=== PATIENT | female | born 1945 | race Caucasian/White ===

== ENCOUNTER 2017-07-06 21:11 | Observation (INO) | payer OTHER ==
[2017-07-06 21:40] LABS: Absolute Lymphocytes (CBC) 1.2 K/uL (0.7-4.9); Absolute Monocytes 0.7 K/uL (0.1-1.3); Absolute Neutrophil 9.9 K/uL (1.8-8.0); Basophils % 0.2 % (0-1.3); Eosinophils % 0.8 % (0-4.4); Hematocrit 38.3 % (36.0-45.0); Lymphocytes % 10.4 % (15.3-44.8); MCH 29.1 pg (27.0-35.0); MCV 85.1 fL (80-100); MPV 7.6 fL (7.6-11.3); Monocytes % 6.1 % (3.3-12.3)
[2017-07-06 21:54] LABS: Potassium 3.3 mEq/L (3.6-5.0); Protime INR 1.03
[2017-07-06] MEDS ORDERED: PANTOPRAZOLE 40 MG INJ ONE (21:55)
[2017-07-06] MEDS ORDERED: MORPHINE 4 MG/ML SYR ONE (21:55)
[2017-07-06] MEDS ORDERED: ONDANSETRON 4 MG/2 ML VIAL ONE (21:55)
[2017-07-06 22:00] LABS: Bilirubin Direct 0.1 mg/dL (0-0.2); Magnesium 1.6 mg/dL (1.8-2.5); Protein, Total 7.7 g/dL (6.0-8.3)
[2017-07-06 22:03] LABS: Urine Blood 1+ (NEG); Urine Glucose NEGATIVE (NEG); Urine Protein NEGATIVE (NEG); Urine Specific Gravity 1.015 (1.005-1.030); Urine pH 8.5 (5.0-7.0)
[2017-07-06] MEDS ORDERED: DIPHENHYDRAMINE 50 MG/ML VIAL ONE (22:31)
[2017-07-06] MEDS ORDERED: MEPERIDINE HCL 25 MG/0.5 ML ONE (22:55)
[2017-07-06] MEDS ORDERED: ASPIRIN 81 MG CHEWABLE TABLET ONE (22:55)
[2017-07-07] MEDS ORDERED: ONDANSETRON 4 MG/2 ML VIAL ONE (01:34)
[2017-07-07] MEDS ORDERED: MAGNESIUM SULFATE 1 gm IVPB 1 GM/100 ML BAG IV ONE (01:59)
[2017-07-07] MEDS ORDERED: MAGNE/ALUM HYDROXD 30 ML UCUP ONE (02:12)
[2017-07-07] MEDS ORDERED: LIDOCAINE VISCOUS 2% SOLN 15 ML UDC ONE (02:12)
[2017-07-07] MEDS ORDERED: POTASSIUM 25 MEQ EFFERV TAB ONE (03:03)
[2017-07-07] MEDS ORDERED: FENTANYL CITR 100 MCG/2 ML ONE (03:28)
--- NOTE | 2017-07-07 03:44 | ER ---
Nurse's Notes [facility] Name: Yomaira East Age: 72 yrs Sex: Female : 1945 Arrival Date: 07/06/2017 Time: 21:20 Bed 16 Private MD: Diagnosis: Epigastric pain;Nausea and vomiting Presentation: 07/06 21:20 Presenting complaint: EMS states: "abdominal pain for about a week, with nausea and jd3 vomiting starting today along with epigastric pain. pt vomited times starting at 1930.". Transition of care: patient was not received from another setting of care. Onset of symptoms was June 30, 2017. Care prior to arrival: Medication(s) given: Normal saline infusion, 250ml zofran 4 mg, IV initiated. 20 GA, in the right antecubital area, Glucose check: 250. 21:20 Method Of Arrival: EMS: [facility] jd3 21:20 Acuity: ALEXANDRA 3 jd3 Historical: - Allergies: 21:28 PENICILLINS; jd3 21:28 Phenergan; jd3 - Home Meds: 21:28 carvedilol oral oral [Active]; Fentanyl Patch Topical [Active]; Lisinopril Oral jd3 [Active]; - PMHx: 21:28 brain tumer; jd3 - PSHx: 21:28 back surgery; Cholecystectomy; Stas foot surgery; Carpal Tunnel Repair; brain tumer jd3 removeal; Hysterectomy; neck surgery; - Immunization history:: Adult Immunizations unknown. - Social history:: Smoking status: unknown. Screenin:31 Abuse screen: Denies threats or abuse. Nutritional screening: No deficits noted. jd3 Tuberculosis screening: No symptoms or risk factors identified. Fall Risk IV access (20 points). Total Man Fall Scale indicates No Risk (0-24 pts). Assessment: 21:29 General: Appears uncomfortable, Behavior is cooperative, appropriate for age, anxious. jd3 Pain: Complains of pain in epigastric area Pain currently is 6 out of 10 on a pain scale. Quality of pain is described as burning. Neuro: Level of Consciousness is awake, alert, obeys commands, Oriented to person, place, time, situation. Cardiovascular: Heart tones S1 S2 present Capillary refill < 3 seconds Patient's skin is warm and dry. Respiratory: Airway is patent Respiratory effort is even, unlabored, Respiratory pattern is regular, symmetrical, Breath sounds are clear bilaterally. GI: Abdomen is round Bowel sounds present X 4 quads. Abd is soft X 4 quads Abdomen is tender to palpation in epigastric area and left lower quadrant Reports nausea, vomiting, Patient currently denies constipation, diarrhea. : No signs and/or symptoms were reported regarding the genitourinary system. EENT: No signs and/or symptoms were reported regarding the EENT system. Derm: Skin is intact, Skin is dry, Skin is normal, Skin temperature is warm. Musculoskeletal: Circulation, motion, and sensation intact. Range of motion: intact in all extremities. 22:30 Reassessment: Patient appears in no apparent distress at this time. Patient and/or jd3 family updated on plan of care and expected duration. Pain level reassessed. Patient is alert, oriented x 3, equal unlabored respirations, skin warm/dry/pink. 23:10 Reassessment: CT notified of patient completing oral contrast at this time. lp1 23:28 Reassessment: Patient appears in no apparent distress at this time. Patient and/or jd3 family updated on plan of care and expected duration. Pain level reassessed. Patient is alert, oriented x 3, equal unlabored respirations, skin warm/dry/pink. 07/07 00:19 Reassessment: Patient appears in no apparent distress at this time. Patient and/or jd3 family updated on plan of care and expected duration. Pain level reassessed. Patient is alert, oriented x 3, equal unlabored respirations, skin warm/dry/pink. Patient states feeling better. 01:31 Reassessment: Patient appears in no apparent distress at this time. Patient and/or jd3 family updated on plan of care and expected duration. Pain level reassessed. Patient is alert, oriented x 3, equal unlabored respirations, skin warm/dry/pink. 02:30 Reassessment: Patient appears in no apparent distress at this time. Patient and/or jd3 family updated on plan of care and expected duration. Pain level reassessed. Patient is alert, oriented x 3, equal unlabored respirations, skin warm/dry/pink. 03:19 Reassessment: Patient appears in no apparent distress at this time. Patient and/or jd3 family updated on plan of care and expected duration. Pain level reassessed. Patient is alert, oriented x 3, equal unlabored respirations, skin warm/dry/pink. 04:22 Reassessment: Patient appears in no apparent distress at this time. Patient and/or jd3 family updated on plan of care and expected duration. Pain level reassessed. Patient is alert, oriented x 3, equal unlabored respirations, skin warm/dry/pink. 05:28 Reassessment: Patient appears in no apparent distress at this time. Patient and/or jd3 family updated on plan of care and expected duration. Pain level reassessed. Patient is alert, oriented x 3, equal unlabored respirations, skin warm/dry/pink. pt reported understanding of need ot be admitted. Vital Signs: 07/06 21:28 BP 174 / 92; Pulse 86; Resp 20 S; Temp 99.0(O); Pulse Ox 100% on R/A; Weight 56.7 kg jd3 (R); Height 5 ft. 5 in. (165.10 cm) (R); Pain 6/10; 23:27 BP 182 / 98; Pulse 87; Resp 18 S; Pulse Ox 98% on R/A; jd3 04/01 00:18 BP 180 / 87; Pulse 86; Resp 17 S; Temp 99.4(O); Pulse Ox 99% on R/A; jd3 01:00 BP 180 / 95; Pulse 85; Resp 17 S; Pulse Ox 99% on R/A; jd3 03:17 BP 174 / 93; Pulse 85; Resp 18 S; Pulse Ox 97% on R/A; jd3 04:22 BP 149 / 90; Pulse 84; Resp 18 S; Pulse Ox 99% on R/A; jd3 05:29 BP 157 / 91; Pulse 81; Resp 17 S; Pulse Ox 97% on R/A; jd3 07/06 21:28 Body Mass Index 20.80 (56.70 kg, 165.10 cm) [facility] ED Course: 07/06 21:20 Patient arrived in ED. jd3 21:20 Parveen Miller PA is PHCP. cp 21:20 Ben Moise MD is Attending Physician. cp 21:24 Triage completed. jd3 21:29 Arm band placed on. jd3 21:31 Patient has correct armband on for positive identification. Bed in low position. Call [facility] light in reach. Side rails up X2. 21:33 Harjit Cortes, RN is Primary Nurse. jd3 21:51 X-ray completed. Portable x-ray completed in exam room. Patient tolerated procedure la2 well. 21:54 XRAY Chest (1 view) In Process Unspecified. EDMS 04 01:10 CT completed. Patient tolerated procedure well. Patient moved to CT via stretcher. bq Patient moved back from CT. 01:16 CT Abd/Pelvis - W/Contrast In Process Unspecified. EDMS 03:43 Olivia Meeks MD is Hospitalizing Provider. cp 04:24 No provider procedures requiring assistance completed. Patient admitted, IV remains in jd3 place. Administered Medications: 07/06 21:46 Drug: ProTONIX 40 mg Route: IVP; Site: right antecubital; jd3 22:45 Follow up: Response: No adverse reaction jd3 21:46 Drug: Zofran 4 mg Route: IVP; Site: right antecubital; jd3 22:45 Follow up: Response: No adverse reaction; Nausea is decreased jd3 21:46 Drug: morphine 4 mg Route: IVP; Site: right antecubital; jd3 07/07 01:02 Follow up: Response: No adverse reaction; Pain is decreased jd3 07/06 22:30 Drug: Benadryl 25 mg Route: IVP; Site: right antecubital; jd3 23:30 Follow up: Response: No adverse reaction jd3 22:45 Drug: Aspirin Chewable Tablet 324 mg Route: PO; jd3 23:45 Follow up: Response: No adverse reaction jd3 22:46 Drug: Demerol 25 mg Route: IVP; Site: right antecubital; jd3 23:45 Follow up: Response: No adverse reaction; Marked relief of symptoms jd3 07/07 01:29 Drug: Zofran 4 mg Route: IVP; Site: right antecubital; jd3 02:15 Follow up: Response: No adverse reaction jd3 01:49 Drug: Magnesium Sulfate 1 grams Route: IVPB; Infused Over: 1 hrs; Site: left jd3 antecubital; 02:30 Follow up: Response: No adverse reaction; IV Status: Completed infusion jd3 01:59 Drug: GI Cocktail without - (Maalox Suspension 30 ml, Lidocaine Liquid 2 % 15 jd3 ml) Route: PO; 02:45 Follow up: Response: No adverse reaction jd3 02:49 Drug: Potassium Effervescent Tablet 25 mEq Route: PO; jd3 03:16 Follow up: Response: No adverse reaction jd3 03:15 Drug: fentaNYL (PF) 25 mcg Route: IVP; Site: right antecubital; jd3 03:45 Follow up: Response: No adverse reaction jd3 04:19 Drug: Trandate 20 mg Route: IVP; Site: right antecubital; jd3 05:11 Follow up: Response: Blood pressure is lowered jd3 04:19 Drug: NS 0.9% 500 ml Route: IV; Rate: bolus; Site: right antecubital; jd3 05:06 Follow up: Response: No adverse reaction; IV Status: Completed infusion; IV Intake: jd3 500ml 04:20 Drug: Lovenox 1 mg/kg Route: Sub-Q; Site: abdomen; jd3 05:11 Follow up: Response: No adverse reaction jd3 05:05 Drug: NS 0.9% 1000 ml Route: IV; Rate: 100 ml/hr; Site: right antecubital; jd3 05:12 Follow up: Response: No adverse reaction; IV Status: Infusion continued upon admission jd3 Intake: 05:06 IV: 500ml; Total: 500ml. jd3 Outcome: 03:43 Decision to Hospitalize by Provider. cp 05:13 Admitted to Med/surg accompanied by tech, via wheelchair, room 210, with chart, Report jd3 called to De WILEY 05:13 Condition: stable 05:13 Instructed on the need for admit, Demonstrated understanding of instructions. 05:26 Patient left the ED. jd3 Signatures: Dispatcher [employer] EDMS Alice Mejia Laura RN RN lp1 Parveen Miller PA PA cp Karla Gonzáles laHarjit Thomas RN RN jd3 Corrections: (The following items were deleted from the chart) 00:19 00:18 BP 180 / 87; Pulse 86bpm; Resp 17bpm; Spontaneous; Pulse Ox 99% RA; jd3 jd3
--- NOTE | 2017-07-07 03:44 | EDPHYS ---
Physician Documentation [facility] Name: Yomaira East Age: 72 yrs Sex: Female : 1945 Arrival Date: 07/06/2017 Time: 21:20 Bed 16 Private MD: ED Physician Ben Moise HPI: 07/06 21:34 This 72 yrs old Female presents to ER via EMS with complaints of epigastric cp pain. 21:34 The patient presents with abdominal pain in the epigastric area. Onset: The cp symptoms/episode began/occurred today. Associated signs and symptoms: Pertinent positives: nausea and vomiting, Pertinent negatives: blood in stools, chest pain, constipation, diarrhea, fever, palpitations, shortness of breath, vomiting blood. The symptoms are described as constant. Historical: - Allergies: 21:28 PENICILLINS; jd3 21:28 Phenergan; jd3 - Home Meds: 21:28 carvedilol oral oral [Active]; Fentanyl Patch Topical [Active]; Lisinopril Oral jd3 [Active]; - PMHx: 21:28 brain tumer; jd3 - PSHx: 21:28 back surgery; Cholecystectomy; Stas foot surgery; Carpal Tunnel Repair; brain tumer jd3 removeal; Hysterectomy; neck surgery; - Immunization history:: Adult Immunizations unknown. - Social history:: Smoking status: unknown. ROS: 21:40 Constitutional: Negative for body aches, chills, fever, poor PO intake. cp 21:40 Eyes: Negative for injury, pain, redness, and discharge. cp 21:40 ENT: Negative for drainage from ear(s), ear pain, sore throat, difficulty swallowing, difficulty handling secretions. 21:40 Neck: Negative for pain with movement, pain at rest, stiffness. 21:40 Cardiovascular: Negative for edema, palpitations. 21:40 Respiratory: Negative for cough, shortness of breath, wheezing. 21:40 Abdomen/GI: Positive for abdominal pain, nausea, vomiting, of the epigastric area, Negative for diarrhea, constipation, dysphagia, hematemesis, black/tarry stool, rectal bleeding. 21:40 Back: Negative for radiated pain. 21:40 : Negative for urinary symptoms. 21:40 Skin: Negative for cellulitis, rash. 21:40 Neuro: Negative for altered mental status, headache, syncope, near syncope, weakness. 21:40 All other systems are negative. Exam: 21:45 Constitutional: The patient appears in no acute distress, alert, awake, cp non-diaphoretic, well developed, well nourished, uncomfortable. 21:45 Head/Face: Normocephalic, atraumatic. Eyes: Pupils equal round and reactive to light, cp extra-ocular motions intact. Lids and lashes normal. Conjunctiva and sclera are non-icteric and not injected. Cornea within normal limits. Periorbital areas with no swelling, redness, or edema. ENT: Nares patent. No nasal discharge, no septal abnormalities noted. Tympanic membranes are normal and external auditory canals are clear. Oropharynx with no redness, swelling, or masses, exudates, or evidence of obstruction, uvula midline. Mucous membranes moist. Neck: Trachea midline, no thyromegaly or masses palpated, and no cervical lymphadenopathy. Supple, full range of motion without nuchal rigidity, or vertebral point tenderness. No Meningismus. Chest/axilla: Normal chest wall appearance and motion. Nontender with no deformity. No lesions are appreciated. 21:45 Cardiovascular: Rate: normal, Rhythm: regular, Pulses: Pulses are 2+ in right radial artery and left radial artery. Edema: is not appreciated, JVD: is not appreciated. 21:45 Respiratory: the patient does not display signs of respiratory distress, Respirations: normal, no use of accessory muscles, no retractions, no splinting, no tachypnea, labored breathing, is not present, Breath sounds: are clear throughout, no decreased breath sounds, no stridor, no wheezing. 21:45 Abdomen/GI: Inspection: abdomen appears normal, Bowel sounds: active, all quadrants, Palpation: soft, in all quadrants, severe abdominal tenderness, in the epigastric area, rebound tenderness, is not appreciated. 21:45 Back: pain, is absent, ROM is normal. 21:45 Musculoskeletal/extremity: Exam is negative for calf tenderness, decreased range of motion, injury. 21:45 Skin: cellulitis, is not appreciated, no rash present. 21:45 Neuro: Orientation: to person, place \T\ time. Mentation: is normal, Cerebellar function: is grossly normal, Motor: moves all fours, strength is normal, Sensation: no obvious gross deficits. 21:47 ECG was reviewed by the Attending Physician. cp 07/07 02:42 ECG was reviewed by the Attending Physician. cp Vital Signs: 07/06 21:28 BP 174 / 92; Pulse 86; Resp 20 S; Temp 99.0(O); Pulse Ox 100% on R/A; Weight 56.7 kg jd3 (R); Height 5 ft. 5 in. (165.10 cm) (R); Pain 6/10; 23:27 BP 182 / 98; Pulse 87; Resp 18 S; Pulse Ox 98% on R/A; jd3 07/07 00:18 BP 180 / 87; Pulse 86; Resp 17 S; Temp 99.4(O); Pulse Ox 99% on R/A; jd3 01:00 BP 180 / 95; Pulse 85; Resp 17 S; Pulse Ox 99% on R/A; jd3 03:17 BP 174 / 93; Pulse 85; Resp 18 S; Pulse Ox 97% on R/A; jd3 04:22 BP 149 / 90; Pulse 84; Resp 18 S; Pulse Ox 99% on R/A; jd3 05:29 BP 157 / 91; Pulse 81; Resp 17 S; Pulse Ox 97% on R/A; jd3 07/06 21:28 Body Mass Index 20.80 (56.70 kg, 165.10 cm) jd3 MDM: 07/06 21:21 Patient medically screened. cp 07/07 03:43 Data reviewed: vital signs, nurses notes, lab test result(s), EKG, radiologic studies, cp CT scan, plain films. 03:43 Test interpretation: by ED physician or midlevel provider: ECG, plain radiologic cp studies. 14:50 ED course: CT results from Dr Randolph called to Dr Red. Pt is admitted in room 210. .kb 07/06 21:21 Order name: Basic Metabolic Panel; Complete Time: 22:14 cp 07/07 01:31 Interpretation: Normal except: K 3.3; GLUC 166; GFR 80. cp 07/06 21:21 Order name: BNP; Complete Time: 22:14 cp 07/07 01:32 Interpretation: Abnormal: BNP 149. cp 07/06 21:21 Order name: CBC with Diff; Complete Time: 22:14 cp 07/07 01:31 Interpretation: Normal except: WBC 12.0; GREGORY% 82.5; LYM% 10.4; NEUT A 9.9. cp 07/06 21:21 Order name: Ckmb; Complete Time: 22:14 cp 07/06 21:21 Order name: CPK; Complete Time: 22:14 cp 07/06 21:21 Order name: LFT's; Complete Time: 22:14 cp 07/07 01:59 Interpretation: Normal except: A/G 1.9. cp 07/06 21:21 Order name: Magnesium; Complete Time: 22:14 cp 07/07 01:58 Interpretation: Abnormal: MG 1.6. cp 07/06 21:21 Order name: PT-INR; Complete Time: 22:14 cp 07/06 21:21 Order name: Ptt, Activated; Complete Time: 22:14 cp 07/06 21:21 Order name: Troponin (emerg Dept Use Only); Complete Time: 22:14 cp 07/06 21:21 Order name: XRAY Chest (1 view); Complete Time: 13:58 cp 07/06 21:21 Order name: Lipase; Complete Time: 22:14 cp 07/06 21:22 Order name: Urine Dipstick--Ancillary (enter results); Complete Time: 22:14 rg2 04 01:59 Interpretation: Normal except: UKET 2+; UBLD 1+; UPH 8.5. cp 07/07 02:28 Order name: Troponin I; Complete Time: 03:41 cp 07/07 03:42 Interpretation: TROP 0.10; Reviewed. cp 07/06 22:14 Order name: CT Abd/Pelvis - W/Contrast; Complete Time: 14:43 cp 07/06 21:21 Order name: EKG; Complete Time: 21:22 cp 07/06 21:21 Order name: Cardiac monitoring; Complete Time: 21:32 cp 07/06 21:21 Order name: EKG - Nurse/Tech; Complete Time: 21:32 cp 07/06 21:21 Order name: IV Saline Lock; Complete Time: 21:32 cp 07/06 21:21 Order name: Labs collected and sent; Complete Time: 21:32 cp 07/06 21:21 Order name: O2 Per Protocol; Complete Time: 21:32 cp 07/06 21:21 Order name: O2 Sat Monitoring; Complete Time: 21:32 cp 07/06 21:21 Order name: Urine Dipstick-Ancillary (obtain specimen); Complete Time: 22:00 cp 07/07 02:27 Order name: PO challenge; Complete Time: 02:31 cp 07/07 02:28 Order name: EKG; Complete Time: 02:28 cp 07/07 02:28 Order name: EKG - Nurse/Tech; Complete Time: 02:40 cp EC/31 21:47 Rate is 85 beats/min. Rhythm is regular. OH interval is normal. QRS interval is normal. cp QT interval is normal. Interpreted by me. Reviewed by me. 07/07 02:42 Rate is 87 beats/min. Rhythm is regular. OH interval is normal. QRS interval is normal. cp QT interval is normal. Interpreted by me. Reviewed by me. Administered Medications: 07/06 21:46 Drug: ProTONIX 40 mg Route: IVP; Site: right antecubital; jd3 22:45 Follow up: Response: No adverse reaction jd3 21:46 Drug: Zofran 4 mg Route: IVP; Site: right antecubital; jd3 22:45 Follow up: Response: No adverse reaction; Nausea is decreased jd3 21:46 Drug: morphine 4 mg Route: IVP; Site: right antecubital; jd3 07/07 01:02 Follow up: Response: No adverse reaction; Pain is decreased jd3 07/06 22:30 Drug: Benadryl 25 mg Route: IVP; Site: right antecubital; jd3 23:30 Follow up: Response: No adverse reaction jd3 22:45 Drug: Aspirin Chewable Tablet 324 mg Route: PO; jd3 23:45 Follow up: Response: No adverse reaction jd3 22:46 Drug: Demerol 25 mg Route: IVP; Site: right antecubital; jd3 23:45 Follow up: Response: No adverse reaction; Marked relief of symptoms jd3 07/07 01:29 Drug: Zofran 4 mg Route: IVP; Site: right antecubital; jd3 02:15 Follow up: Response: No adverse reaction jd3 01:49 Drug: Magnesium Sulfate 1 grams Route: IVPB; Infused Over: 1 hrs; Site: left [facility] antecubital; 02:30 Follow up: Response: No adverse reaction; IV Status: Completed infusion jd3 01:59 Drug: GI Cocktail without - (Maalox Suspension 30 ml, Lidocaine Liquid 2 % 15 jd3 ml) Route: PO; 02:45 Follow up: Response: No adverse reaction jd3 02:49 Drug: Potassium Effervescent Tablet 25 mEq Route: PO; jd3 03:16 Follow up: Response: No adverse reaction jd3 03:15 Drug: fentaNYL (PF) 25 mcg Route: IVP; Site: right antecubital; jd3 03:45 Follow up: Response: No adverse reaction jd3 04:19 Drug: Trandate 20 mg Route: IVP; Site: right antecubital; jd3 05:11 Follow up: Response: Blood pressure is lowered jd3 04:19 Drug: NS 0.9% 500 ml Route: IV; Rate: bolus; Site: right antecubital; jd3 05:06 Follow up: Response: No adverse reaction; IV Status: Completed infusion; IV Intake: jd3 500ml 04:20 Drug: Lovenox 1 mg/kg Route: Sub-Q; Site: abdomen; jd3 05:11 Follow up: Response: No adverse reaction jd3 05:05 Drug: NS 0.9% 1000 ml Route: IV; Rate: 100 ml/hr; Site: right antecubital; jd3 05:12 Follow up: Response: No adverse reaction; IV Status: Infusion continued upon admission jd3 Disposition: 06:01 Co-signature as Attending Physician, Ben Moise MD. pk Disposition: 07/07/17 03:43 Hospitalization ordered by Olivia Meeks for Observation. Preliminary diagnosis are Epigastric pain, Nausea and vomiting. - Bed requested for Telemetry/MedSurg (observation). - Status is Observation. jd3 - Condition is Stable. - Problem is new. - Symptoms have improved. UTI on Admission? No Signatures: Dispatcher [employer] Ila Sanders FNP-C FNP-Ckb Lam, Pin, MD MD pkParveen Hannah PA PA cp Garcia, Cindy, RN RN cg Davies, Jonathon, RN RN jd3
[2017-07-07] MEDS ORDERED: ENOXAPARIN 60 MG/0.6 ML SQ ONE (04:20)
[2017-07-07] MEDS ORDERED: LABETALOL 20 MG/4ML SYRINGE IV ONE (04:20)
[2017-07-07] MEDS ORDERED: NA CHLORIDE 0.9% 1,000 ML ONE (04:20)
[2017-07-07] MEDS ORDERED: ACETAMINOPHEN 500 MG TAB PO PRN (04:25)
[2017-07-07] MEDS ORDERED: ALPRAZOLAM 0.25 MG TABLET PO PRN (04:25)
[2017-07-07] MEDS ORDERED: PANTOPRAZOLE 40 MG INJ IVP ONE (05:53)
[2017-07-07] MEDS: MORPHINE 4 MG/ML SYR IV PRN ×2 (06:13→13:14)
[2017-07-07] MEDS: SODIUM CHLORIDE 0.9% 10ML INJ IV PRN ×2 (06:13→20:43)
--- NOTE | 2017-07-07 07:39 | P.HP ---
Certification for Inpatient Patient admitted to: Observation With expected LOS: <2 Midnights Patient will require the following post-hospital care: None Practitioner: I am a practitioner with admitting privileges, knowledge of patient current condition, hospital course, and medical plan of care. Services: Services provided to patient in accordance with Admission requirements found in Title 42 Section 412.3 of the Code of Federal Regulations Patient History Date of Service: 07/07/17 Reason for admission: Epigastric pain History of Present Illness: Patient is a 72-year-old female who started having chest pain around the epigastric region while not really exerting herself much. Patient was also having intractable nausea and vomiting. This was not improving. The pain would not let up so she came into the hospital for further evaluation. In the emergency room her initial troponins were negative. Her EKG was unremarkable. However, her repeat troponins came back elevated. At this time will go ahead and admit patient for further evaluation. We will get Cardiology consultation in the morning. Strict blood sugar and blood pressure control. Allergies Penicillins Adverse Reaction (Mild, Verified 07/07/17 04:05) Rash promethazine [From Phenergan] Adverse Reaction (Mild, Verified 07/07/17 04:05) Rash Home Medications: Amlodipine Besylate [Amlodipine Besylate] 5 mg PO DAILY 07/07/17 Carvedilol [Carvedilol] 12.5 mg PO BID 07/07/17 Fentanyl [Fentanyl] 75 mcg TOP Q48H 07/07/17 Glycopyrrolate [Glycopyrrolate] 1 tab PO TID 07/07/17 Hydrocodone/Acetaminophen [Hydrocodone-Acetamin 10-325 mg] 1 tab PO BID Lisinopril [Prinivil*] 20 mg PO DAILY 07/07/17 Pantoprazole Sodium 40 mg PO BID 07/07/17 Temazepam [Temazepam] 15 mg PO BEDTIME 07/07/17 Tizanidine HCl [Tizanidine HCl] 2 mg PO BID 07/07/17 - Past Medical/Surgical History Has patient received pneumonia vaccine in the past: Yes Diabetic: No -: hypertension -: brain tumor -: back surgery, cholecystectomy, bilateral foot surgery -: carpal tunnel repair, brain tumor removal, hysterectomy, neck surgery - Social History Smoking Status: Never smoker Alcohol use: No CD- Drugs: Yes Caffeine use: Yes Place of Residence: Home Review of Systems 10-point ROS is otherwise unremarkable Physical Examination - Vital Signs Temperature: 99.5 F Blood Pressure: 149/90 Pulse: 84 Respirations: 18 Pulse Ox (%): 95 - Physical Exam General: Alert, In no apparent distress, Oriented x3 HEENT: Atraumatic, PERRLA, Mucous membr. moist/pink, EOMI, Sclerae nonicteric Neck: Supple, 2+ carotid pulse no bruit, No LAD, Without JVD or thyroid abnormality Respiratory: Clear to auscultation bilaterally, Normal air movement Cardiovascular: Regular rate/rhythm, Normal S1 S2, No murmurs Gastrointestinal: Normal bowel sounds, Soft and benign, Non-distended, No rebound, No guarding, Tenderness (Epigastric region) Musculoskeletal: No clubbing, No swelling, No tenderness Integumentary: No rashes Neurological: Normal gait, Normal speech, Normal strength at 5/5 x4 extr, Normal tone, Sensation intact, Cranial nerves 3-12 intact, Normal affect Lymphatics: No axilla or inguinal lymphadenopathy - Studies Laboratory Data (last 24 hrs) 07/07/17 02:40: Troponin I 0.10 H 07/06/17 21:30: PT 12.1, INR 1.03, APTT 26.9 07/06/17 21:30: WBC 12.0 H, Hgb 13.1, Hct 38.3, Plt Count 251 07/06/17 21:30: B-Natriuretic Peptide 149 H 07/06/17 21:30: Sodium 140, Potassium 3.3 L, BUN 11, Creatinine 0.72, Glucose 166 H, Magnesium 1.6 L, Total Bilirubin 1.0, AST 26, ALT 20, Alkaline Phosphatase 58, Lipase 11 L Assessment & Plan - Problems (Diagnosis) (1) Epigastric pain Current Visit: Yes Status: Acute (2) Non-ST elevation myocardial infarction (NSTEMI) Current Visit: Yes Status: Acute (3) Hypertension Current Visit: Yes Status: Acute (4) Chronic pain Current Visit: Yes Status: Acute - Plan 1. Serial troponins and EKG 2. Cardiology consultation 3. Echocardiogram and possible stress test 4. Anti-platelet therapy, anti coagulation, beta-aminata, statin, and O2 as needed 5. IV morphine for pain 6. Nitro p.r.n. 7. Try a PPI to see if this alleviates her symptoms. Discharge Plan: Home Plan to discharge in: Greater than 2 days - Advance Directives Does patient have a Living Will: No Does patient have a Durable POA for Healthcare: No - Code Status/Comfort Care Code Status Assessed: Yes Code Status: Full Code Critical Care: No Time Spent Managing PTS Care (In Minutes): 50
[2017-07-07] MEDS ORDERED: METOPROLOL TAR 50 MG TAB PO SCH (09:00)
[2017-07-07] MEDS ORDERED: ENOXAPARIN 40 MG/0.4 ML SQ SCH (09:00)
[2017-07-07] MEDS: PANTOPRAZOLE 40 MG INJ IVP SCH ×2 (09:08→20:43)
[2017-07-07] MEDS: ASPIRIN EC 81 MG TAB PO SCH (09:08)
--- NOTE | 2017-07-07 09:48 | RAD REPORT ---
EXAM DESCRIPTION: Lisa Single View07/06/2017 9:54 pm CLINICAL HISTORY: Abdominal pain COMPARISON: 2009 FINDINGS: The lungs appear clear of acute infiltrate. The heart is normal size IMPRESSION: No acute abnormalities displayed
--- NOTE | 2017-07-07 12:43 | EKG ---
Test Date: 2017-07-06 Test Time: 21:40:06 Front Office Manager: NICHO MEASUREMENT RESULTS: Intervals: Rate: 85 WI: 150 QRSD: 72 QT: 384 QTc: 456 [place]: P: 77 WI: 150 QRS: 61 T: 7 INTERPRETIVE STATEMENTS: Normal sinus rhythm Nonspecific ST and T wave abnormality Abnormal ECG Compared to ECG 05/22/2012 11:38:19 ST (T wave) deviation now present Electronically Signed On 07-07-17 12:42:44 CDT by Luis Gustafson
--- NOTE | 2017-07-07 12:43 | EKG ---
Test Date: 2017-07-07 Test Time: 02:38:55 Quartz Miner: NICHO MEASUREMENT RESULTS: Intervals: Rate: 87 NH: 160 QRSD: 76 QT: 390 QTc: 469 [place]: P: 58 NH: 160 QRS: 47 T: 43 INTERPRETIVE STATEMENTS: Normal sinus rhythm Nonspecific ST and T wave abnormality Abnormal ECG Compared to ECG 07/06/2017 21:40:06 No significant changes Electronically Signed On 07-07-17 12:42:28 CDT by Luis Gustafson
[2017-07-07] MEDS ORDERED: ONDANSETRON 4 MG/2 ML VIAL IV PRN (13:28)
--- NOTE | 2017-07-07 14:05 | RAD REPORT ---
EXAM DESCRIPTION: CT - Abdomen Pelvis W Contrast - 07/07/2017 1:16 am CLINICAL HISTORY: Abdominal pain. Epigastric pain and vomiting. Surgery date 6+ months cholecystect yvette TECHNIQUE: Computed axial tomography of the abdomen and pelvis was obtained. 100 cc Isovue-300 is ad ministered intravenously. Oral contrast was given.A preliminary report was generated by [employer] and reviewed prior to this dictation All CT scans are performed using dose optimization technique as appropriate and may include automated exposure control or mA/KV adjustment according to patient size. FINDINGS: Mild fatty infiltration liver is present. Pancreas, adrenals and kidneys appear unremarkable. A 7 centimeter isodense structure abuts the medial aspect of the upper spleen. It compresses the prox imal stomach. The wall of the sigmoid colon is borderline thickened. A small umbilical hernia is present IMPRESSION: 7 centimeter isodense structure abutting the medial aspect of the upper spleen may repre sent a mass or a portion of unusual appearing spleen. MRI is recommended Borderline thickening of the wall of the sigmoid colon may be secondary to incomplete distention or a mild colitis Examination was discussed with Ila Goodman in the Emergency Room 2 p.m. on July 07, 2017
[2017-07-07] MEDS: FENTANYL CITR 100 MCG/2 ML IV PRN ×2 (16:06→20:43)
[2017-07-07] MEDS: CARVEDILOL 25 MG TAB PO SCH (17:35)
--- NOTE | 2017-07-07 18:53 | CON ---
Date of Consultation: 07/07/[address] Bagley's service on 07/07/2017. I saw the patient on 07/07/2017. Reason For Consultation: Non ST elevation myocardial infarction. History Of Present Illness: Ms. East is a 72-year-old white woman, has a history of brain tumor in the past, hypertension, gastroesophageal reflux disease, dyslipidemia, on no therapy, came in with m id-epigastric substernal chest pain without any radiation, nonexertional, but with nausea, vomiting, and diaphoresis. Symptoms were not related to body position and exertion. Occasionally they get wor se with meals. Her troponin, however, came back at 0.35, magnesium was 1.6, glucose was 166. Her wh ite count was 20,000. She was hypertensive on admission was 180/87. Continues to have intermittent chest pain. Allergies: SHE IS ALLERGIC TO PENICILLIN AND PROMETHAZINE. Social History: Negative. Family History: Positive for heart disease. Review of Systems: Negative. She is a patient of Dr. Charly Barcenas as an outpatient. Medications: Her medication at home includes Norvasc, Coreg, Prinivil, and Protonix. Physical Examination: General: She was diaphoretic, having chest pain. Her pain she said had just started. Vital Signs: Blood pressure is 160 now systolic. HEENT: Negative. Neck: Supple. No bruit. Chest: Clear. Cardiac: Revealed a regular rhythm and rate without any murmurs, gallops, or rubs. Abdomen: Benign. Extremities: Revealed no clubbing, cyanosis, or edema. Diagnostic Data: As stated earlier. EKG is nonspecific. Chest x-ray is negative. Impression And Plan: 1.Rather atypical symptoms with more midepigastric chest pain. No radiation. No shortness of breat h, but have nausea, vomiting, diaphoresis, and elevated troponin. Multiple cardiac risk factors incl uding untreated dyslipidemia with cholesterol of more than 250. Family history of hypertension. Her blood glucose level was 160 and she may be a borderline diabetic as well. Nevertheless, I discussed the case with the family and the patient and I think she needs a left heart catheterization to defin e her coronary anatomy and she agreed to proceed. She understands the risks and the benefits. Meanw hcau, I increase her Coreg and the Prinivil for hypertension control. I will put her on clear liquid diet for now until the catheterization is done and see what we can find. Her blood pressure is stil l poorly controlled and her dyslipidemia definite needs to be addressed down the road and I think she should be on statins, especially with her family history of heart disease. DALLIN/MELY Voice ID: [id number] Report ID: [id number]
[2017-07-07] MEDS: ONDANSETRON 4 MG/2 ML VIAL IV PRN (20:50)
[2017-07-08] MEDS: FENTANYL CITR 100 MCG/2 ML IV PRN ×2 (06:11→13:04)
[2017-07-08] MEDS: CARVEDILOL 25 MG TAB PO SCH (06:12)
[2017-07-08] MEDS: ONDANSETRON 4 MG/2 ML VIAL IV PRN ×2 (06:12→12:39)
[2017-07-08] MEDS ORDERED: HEPA 1000U/500MLS 2,000 UNIT/1,000 ML BAG IV ONE (07:29)
[2017-07-08] MEDS ORDERED: LIDOCAINE 1% 20 ML MDV ONE (07:29)
[2017-07-08] MEDS ORDERED: MIDAZOLAM HCL 2 MG/2 ML INJ ONE (07:57)
[2017-07-08] MEDS ORDERED: NA CHLORIDE 0.9% 500 ML ONE (07:57)
[2017-07-08] MEDS ORDERED: NICARDIPINE HCL 25 MG/10 ML IV ONE (07:58)
[2017-07-08] MEDS ORDERED: FENTANYL CITR 100 MCG/2 ML ONE (07:58)
[2017-07-08] MEDS ORDERED: ATROPINE SULF 1 MG/10 ML SYR IV ONE (07:58)
[2017-07-08] MEDS ORDERED: NA CHLORIDE 0.9% 0 ML ONE (07:58)
[2017-07-08] MEDS ORDERED: HEPARIN 5000 UNIT/ML 1 ML VIAL ONE (07:58)
[2017-07-08] MEDS ORDERED: NITROGLYCERIN/D5W 25 MG/250 ML BTL IV ONE (07:59)
[2017-07-08] MEDS ORDERED: NITROGLYCERIN 0.4 MG/TAB SL PRN (08:29)
[2017-07-08] MEDS ORDERED: LISINOPRIL 20 MG TAB PO SCH (09:00)
[2017-07-08] MEDS ORDERED: AMLODIPINE 5 MG TAB PO SCH (09:00)
[2017-07-08] MEDS ORDERED: DILTIAZEM HCL 180 MG SR CAP PO SCH (09:00)
[2017-07-08] MEDS ORDERED: CARVEDILOL 12.5 MG TAB PO SCH (09:00)
[2017-07-08] MEDS: ASPIRIN EC 81 MG TAB PO SCH (12:25)
[2017-07-08] MEDS: PANTOPRAZOLE 40 MG INJ IVP SCH (12:26)
--- NOTE | 2017-07-08 12:46 | RAD REPORT ---
EXAM DESCRIPTION: MRIAbdomen CLINICAL HISTORY: Abdominal pain. COMPARISON: CT study 07/07/2017. FINDINGS: The liver demonstrates a normal appearance with no evidence of liver mass or intrahepatic biliary dilatation. The pancreas, adrenal glands and kidneys are within normal limits. Small benign cyst is seen in media l right kidney. The previously noted lesion in the region of the left upper quadrant is again noted. The MR appearanc e is very similar to the adjacent splenic parenchyma on all MR pulse sequences. Most likely, this rep resents a large lobulation of the spleen rather than an aggressive mass. There is no evidence of intra-abdominal adenopathy or free fluid. IMPRESSION: The prominent recently detected lesion in the left upper quadrant demonstrates MR signal characteristics which match the splenic parenchyma, likely indicating that this represents a promine nt lobulation of the spleen. No aggressive lesion is suspected.
[2017-07-08 14:57] LABS: Absolute Lymphocytes (CBC) 1.9 K/uL (0.7-4.9); Absolute Monocytes 0.6 K/uL (0.1-1.3); Basophils % 0.3 % (0-1.3); Hematocrit 36.3 % (36.0-45.0); Lymphocytes % 28.7 % (15.3-44.8); MPV 7.4 fL (7.6-11.3); Monocytes % 9.1 % (3.3-12.3); RBC Red Blood Cell Count 4.17 M/uL (3.86-4.86)
--- NOTE | 2017-07-08 15:02 | P.PN ---
Subjective Date of Service: 07/08/17 Primary Care Provider: Dr. Barcenas Chief Complaint: Epigastric pain Subjective: Improving Physical Examination - Vital Signs Temperature: 97 F Blood Pressure: 97/51 Pulse: 69 Respirations: 16 Pulse Ox (%): 96 - Physical Exam General: Alert, In no apparent distress, Oriented x3, Cooperative HEENT: Atraumatic, Mucous membr. moist/pink Neck: Supple Respiratory: Clear to auscultation bilaterally, Normal air movement Cardiovascular: Normal pulses, Regular rate/rhythm Gastrointestinal: Normal bowel sounds, Soft and benign, Non-distended, No tenderness, No masses, No rebound, No guarding Musculoskeletal: No erythema, No tenderness, No warmth Integumentary: No tenderness/swelling, No erythema, No warmth, No cyanosis Neurological: Normal speech, Normal strength at 5/5 x4 extr, Normal tone, Normal affect - Studies Medications List Reviewed: Yes Assessment & Plan - Problems (Diagnosis) (1) Abnormal CT scan Current Visit: Yes Status: Acute Plan: CT scan reviewed. MRI of the abdomen followed. MRI shows prominent lobulated spleen. No aggressive lesion noted. This is likely rubbing against stomach. Patient without any significant pain at this time. Patient with history of GERD. Will continue with PPI. Will get abdominal ultrasound to further assess. Consider discharge today as heart catheterization was unremarkable. (2) GERD (gastroesophageal reflux disease) Current Visit: Yes Status: Chronic Plan: Will continue with PPI Qualifiers: Esophagitis presence: esophagitis presence not specified Qualified Code(s) : K21.9 - Gastro-esophageal reflux disease without esophagitis (3) Epigastric pain Onset Date: 07/08/17 Current Visit: Yes Status: Acute Plan: This may be related to GERD. Will continue with PPI. Patient will need to follow up with gastroenterology as an outpatient to further evaluate. Patient will likely need EGD. (4) Hypertension Onset Date: 07/08/17 Current Visit: Yes Status: Chronic Plan: Will continue with her medication. Qualifiers: Hypertension type: essential hypertension Qualified Code(s): I10 - Essential (primary) hypertension (5) Non-ST elevation myocardial infarction (NSTEMI) Onset Date: 07/08/17 Current Visit: Yes Status: Acute Plan: Heart catheterization unremarkable. Case discussed at length with cardiology. (6) Hyperlipidemia Current Visit: Yes Status: Acute Plan: LDL elevated. Patient will likely need statin medication at discharge. Qualifiers: Hyperlipidemia type: unspecified Qualified Code(s): E78.5 - Hyperlipidemia , unspecified (7) Chronic pain Onset Date: 07/08/17 Current Visit: Yes Status: Chronic Plan: Patient with chronic pain. Will continue with her medication. Qualifiers: Chronic pain type: chronic pain syndrome Qualified Code(s): G89.4 - Chronic pain syndrome Discharge Plan: Home Plan to discharge in: 24 Hours Time Spent Managing Pts Care (In Minutes): 55
[2017-07-08 15:47] LABS: Potassium 3.5 mEq/L (3.6-5.0)
[2017-07-08 15:48] LABS: Albumin 3.9 g/dL (3.2-5.5); Bilirubin Total 1.2 mg/dL (0.3-1.2); Magnesium 2.1 mg/dL (1.8-2.5); Protein, Total 6.2 g/dL (6.0-8.3)
[2017-07-08 15:54] LABS: Anisocytosis 1+; Blood Morphology Comment NOTED (NOT SEEN); Platelet Estimate ADEQ; Urine White Blood Cell Casts OK
[2017-07-08] MEDS ORDERED: FENTANYL 75 MCG/PATCH TD SCH (17:00)
--- NOTE | 2017-07-08 17:57 | RAD REPORT ---
EXAM DESCRIPTION: US - Abdomen Exam Complete - 07/08/2017 4:14 pm CLINICAL HISTORY: Abdominal pain. COMPARISON: 12/25/2012 FINDINGS: The gallbladder is normal without evidence of gallstones, pericholecystic fluid or gallbla dder wall thickening. No biliary dilatation is seen. The common bile duct measures 5 mm. The spleen is within normal limits in size measuring 11 x 6 cm. IMPRESSION: No worrisome abnormality is detected.
--- NOTE | 2017-07-08 18:22 | P.DS ---
Admission Date: 07/07/17 Discharge Date: 07/08/17 Primary Care Provider: Dr. Barcenas Disposition: ROUTINE DISCHARGE Discharge Condition: GOOD Reason for Admission: Epigastric pain Consultations: Cardiology-Dr. Gustafson Procedures: Heart cath: Unremarkable. No stent intervention needed. - Problems (1) Abnormal CT scan Current Visit: Yes Status: Acute (2) GERD (gastroesophageal reflux disease) Current Visit: Yes Status: Chronic Qualifiers: Esophagitis presence: esophagitis presence not specified Qualified Code(s) : K21.9 - Gastro-esophageal reflux disease without esophagitis (3) Epigastric pain Onset Date: 07/08/17 Current Visit: Yes Status: Acute (4) Hypertension Onset Date: 07/08/17 Current Visit: Yes Status: Chronic Qualifiers: Hypertension type: essential hypertension Qualified Code(s): I10 - Essential (primary) hypertension (5) Non-ST elevation myocardial infarction (NSTEMI) Onset Date: 07/08/17 Current Visit: Yes Status: Acute (6) Hyperlipidemia Current Visit: Yes Status: Acute Qualifiers: Hyperlipidemia type: unspecified Qualified Code(s): E78.5 - Hyperlipidemia , unspecified (7) Chronic pain Onset Date: 07/08/17 Current Visit: Yes Status: Chronic Qualifiers: Chronic pain type: chronic pain syndrome Qualified Code(s): G89.4 - Chronic pain syndrome Brief History of Present Illness: 72-year-old female presented emergency room with epigastric pain. Patient found to have elevated troponin. The patient was admitted for further evaluation. Cardiology was consulted. Hospital Course: During the course of her stay the patient was evaluated by cardiology for the elevated troponin. Patient had heart catheterization showing no abnormalities. No stent intervention needed. Patient had abnormal CT scan. Recommendation was to follow up with an MRI to evaluate possible adrenal mass. MRI showed a prominent lobulated spleen. No aggressive abnormality was noted. Abdominal ultrasound was unremarkable. Epigastric pain likely related to underlying GERD. Patient will continue with Protonix 40 mg 1 pill twice daily. Recommendation is for the patient to follow up with GI as an outpatient to further evaluate. Patient may require EGD to further assess. Patient has hypertension. Medications have been adjusted. At discharge Norvasc and lisinopril have been discontinued. Patient will continue with carvedilol 12.5 mg 1 pill twice daily. Recommendation is to maintain blood pressures less 150/80. Further adjustment in her medication can be done by her PCP. She may need to hold her medication if blood pressure is less than 110 systolic. If blood pressures remain elevated she may have to go back on the [facility]. Patient has hyperlipidemia. Recommendation is to recheck lipid panel in 4-6 weeks. Patient may require statin medication in the near future. This can be further addressed by her PCP. Patient has chronic pain. She will continue with her chronic pain regimen. Further adjustment in medication can be done by her pain specialist. Patient had mild renal insufficiency. Lisinopril has been discontinued. Recommendation to recheck-BMP in 1 week to monitor her progress and resolution. Vital Signs/Physical Exam: Temp Pulse Resp BP Pulse Ox 98.4 F 68 18 126/64 94 07/08/17 16:00 07/08/17 16:00 07/08/17 16:00 07/08/17 16:00 07/08/17 16:00 General: Alert, In no apparent distress, Oriented x3, Cooperative HEENT: Atraumatic Neck: Supple Respiratory: Clear to auscultation bilaterally, Normal air movement Cardiovascular: Normal pulses, Regular rate/rhythm Gastrointestinal: Normal bowel sounds, Soft and benign, Non-distended, No ascites, No tenderness, No masses, No rebound, No guarding Musculoskeletal: No erythema, No tenderness, No warmth Integumentary: No tenderness/swelling, No erythema, No warmth, No cyanosis Neurological: Normal speech, Normal strength at 5/5 x4 extr, Normal tone, Normal affect Lymphatics: No axilla or inguinal lymphadenopathy Laboratory Data at Discharge: WBC 6.6 K/uL (4.3-10.9) D 07/08/17 14:41 Hgb 12.1 g/dL (12.0-15.0) 07/08/17 14:41 Hct 36.3 % (36.0-45.0) 07/08/17 14:41 Plt Count 196 K/uL (152-406) D 07/08/17 14:41 PT 12.1 SECONDS (9.5-12.5) 07/06/17 21:30 INR 1.03 07/06/17 21:30 APTT 26.9 SECONDS (24.3-36.9) 07/06/17 21:30 Sodium 133 mEq/L (135-145) L 07/08/17 14:41 Potassium 3.5 mEq/L (3.6-5.0) L 07/08/17 14:41 BUN 22 mg/dL (6-20) H 07/08/17 14:41 Creatinine 1.06 mg/dL (0.44-1.00) H 07/08/17 14:41 Glucose 91 mg/dL (65-120) 07/08/17 14:41 Magnesium 2.1 mg/dL (1.8-2.5) D 07/08/17 14:41 Total Bilirubin 1.2 mg/dL (0.3-1.2) 07/08/17 14:41 AST 19 IU/L (10-42) 07/08/17 14:41 ALT 16 IU/L (10-60) 07/08/17 14:41 Alkaline Phosphatase 41 IU/L (42-121) L 07/08/17 14:41 Troponin I 0.35 ng/mL (<0.03) H 07/07/17 09:59 B-Natriuretic Peptide 149 pg/ml (<=100) H 07/06/17 21:30 Triglycerides 59 mg/dL (35-160) 07/07/17 05:40 Cholesterol 227 mg/dL (<200) H 07/07/17 05:40 HDL Cholesterol 55 mg/dL (29-89) 07/07/17 05:40 Cholesterol/HDL Ratio 4.13 07/07/17 05:40 Lipase 11 U/L (22-51) L 07/06/17 21:30 Home Medications: Carvedilol 12.5 mg PO BID 07/07/17 Fentanyl 75 mcg TOP Q48H 07/07/17 Glycopyrrolate 1 tab PO TID 07/07/17 Hydrocodone/Acetaminophen [Hydrocodone-Acetamin 10-325 mg] 1 tab PO BID Pantoprazole Sodium 40 mg PO BID 07/07/17 Temazepam 15 mg PO BEDTIME 07/07/17 Tizanidine HCl 2 mg PO BID 07/07/17 Patient Discharge Instructions: 1. Patient will need to follow up with her PCP in 1 week to follow up this hospitalization. 2. Patient presented with epigastric pain. Patient evaluated by Cardiology due to elevated troponin. Patient had heart catheterization. Heart catheterization showed no acute abnormalities. No stent needed. Patient had abnormal CT scan. A follow up MRI showed a prominent lobulated spleen. No aggressive abnormal lesion noted. Epigastric pain likely related to underlying GERD. Patient will continue with Protonix 40 mg 1 pill twice daily. Recommendation is for the patient to follow up with GI as an outpatient to further evaluate. Patient may require EGD to further assess. 3. Patient has hypertension. Medications have been adjusted. At discharge Norvasc and lisinopril have been discontinued. Patient will continue with carvedilol 12.5 mg 1 pill twice daily. Recommendation is to maintain blood pressures less 150/80. Further adjustment in her medication can be done by her PCP. She may need to hold her medication if blood pressure is less than 110 systolic. If blood pressure elevated she may have to restart Norvasc 5 mg daily. 4. Patient has hyperlipidemia. Recommendation is to recheck lipid panel in 4-6 weeks. Patient may require statin medication in the near future. This can be further addressed by her PCP. 5. Patient has chronic pain. She will continue with her chronic pain regimen. Further adjustment in medication can be done by her pain specialist. 6. Patient had mild renal insufficiency. Lisinopril has been discontinued. Recommendation to recheck-BMP in 1 week to monitor her progress and resolution. Diet: AHA Activity: Ad blayne Time spent managing pt's care (in minutes): 55
--- NOTE | 2017-07-08 18:57 | OP ---
Surgeon: Luis Gustafson MD Procedures: Left heart catheterization with coronary and left ventricular angiography. No stent was done. No stent was required. Findings: The patient had normal coronary arteries. There was some catheter-induced spasm of the ri ght coronary. Her arteries, in general, are tortuous, but there is no stenosis. Her left ventricula r ejection fraction is normal. Left ventricular end-diastolic pressure 12, which is normal. Procedure In Detail: The patient had abnormal cardiac enzymes. Troponins went up as high as 0.35. She was fasting. She gave informed consent. She was prepared and draped in the usual sterile fashio n. Right radial approach was used. Tissues over the right radial artery were anesthetized with 1% l idocaine. The artery was entered using a 21-gauge needle. A 0.021 inch diameter guidewire was used to cannulate the artery, and then we used a modified Seldinger technique to put a 6-[place]iss Shopmium rad ial sheath in place. It was flushed, and we gave a radial cocktail containing nicardipine, heparin, and nitroglycerin. We used a Shopmium TIG catheter. It was guided into place using a short radius J-t ipped Glidewire. We were able to use this catheter to angiogram right coronary, left coronary, and l eft ventricle. At the end of the procedure, the guidewire was withdrawn over a J-wire. There were n o complications from the procedure. The arteriotomy was closed by removing the sheath and placing a TR band. Estimated Blood Loss: 5 cc. Complications: None. Gis Mapping Technician: Prakash Beckman. RAHEEL/MELY Voice ID: [id number] Report ID: [id number]
== END 2017-07-08 19:04 | disposition home or self-care (01) ==
LOC: ER 21:11 → ERHOLD 07-07 03:59 → 2ND 07-07 04:42 → INTOOBSV 07-07 13:35 → OBSVTOIN 07-07 13:35 → 2ND 07-08 06:00
PROVIDERS: ADMIT Hospitalist; ATTEND Hospitalist
DX: I10 Essential (primary) hypertension; Z88.0 Allergy status to penicillin; R93.5 Abnormal findings on diagnostic imaging of other abdominal regions, including retroperitoneum; G89.29 Other chronic pain; N28.9 Disorder of kidney and ureter, unspecified; R79.89 Other specified abnormal findings of blood chemistry; E78.5 Hyperlipidemia, unspecified; R10.13 Epigastric pain; I77.1 Stricture of artery; K21.9 Gastro-esophageal reflux disease without esophagitis
CPT/HCPCS: 36415 ×2; 71045; 74177; 76700; 80048; 80053; 80061; 80076; 81003; 82550; 82553; 83690; 83735 ×2; 83880; 84484 ×4; 85025 ×2; 85610; 85730; 93005 ×2; 93458; 96361; 96365; 96372; 96375; 99285; C1893; C9113 ×5; G0378 ×2; J1644; J1650 ×2; J2175; J2250; J2405 ×7; J3010 ×5; J3475; J7030; Q9967; J0583

== ENCOUNTER 2020-03-03 19:11 | Emergency (ER) | payer OTHER, MEDICARE ==
--- OUTSIDE RECORDS SUMMARY | 2020-03-03 19:13 | XMS REPORT | Summary of Care ---
:1945 Author Organization [facility] Address [address] [place] [address] Care Team Providers Name Role Phone Will Barcenas Primary Care Provider Zbigniew Miranda DO Life Educator Reason for Visit Radiology Services (Routine) Status Reason Specialty Diagnoses / Referred By Referred To Procedures Contact Contact New Request Diagnostic Diagnoses Diarrhea, unspecified type Nausea DIARRHEA NAUSEA Charafeddine, Radiology Procedures US ABDOMEN LIMITED US ABDOMEN COMPLETE CHG US, ABDOM,B-SCAN &/OR REAL TIME,COMPLETE US ABDOMEN COMPLETE Sera Maya MD [address] [facility] [address] [place] [id number] Encounter Details Date Type Department Care Team Description 12/15/2019 Hospital Encounter [facility] Sera Mancera MD [address] [facility] [address] [place] [address] [id number] [place], [place] [id number] Allergies Active Allergy Reactions Severity Noted Date Comments Baclofen Unknown - See comments 11/11/2019 documented as of this encounter (statuses as of 12/16/2019) Medications Medication Sig Dispensed Refills Start Date End Date Status amLODIPine 5 mg tablet Take 5 mg by 0 Active mouth daily. temazepam 15 mg capsule Take 15 mg by 0 Active mouth at bedtime as needed for Insomnia. tiZANidine 2 mg capsule Take 2 mg by 0 Active mouth 3 (three) times daily. glycopyrrolate 2 mg Take 2 mg by 0 Active tablet mouth 3 (three) times daily as needed for Other (Acid reflux). FLUoxetine 40 mg capsule Take 40 mg by 0 Active mouth daily. pantoprazole 20 mg EC Take 1 tablet 30 tablet 0 11/15/2019 Active tabletIndications: by mouth daily. Gastroesophageal reflux disease without esophagitis acidophilus 100 million Take 1 tablet 60 tablet 0 11/15/2019 Active cell tabletIndications: by mouth 2 Gastroesophageal reflux (two) times disease without daily. esophagitis documented as of this encounter (statuses as of 12/16/2019) Active Problems Problem Noted Date Colitis 11/11/2019 Essential hypertension 11/11/2019 Gastroesophageal reflux disease without esophagitis Chronic back pain 11/11/2019 documented as of this encounter (statuses as of 12/16/2019) Social History Tobacco Use Types Packs/Day Years Used Date Never Smoker Smokeless Tobacco: Never Used Financial Resource Strain Answer Date Recorded How hard is it for you to pay for the very basics like Not h thiago at all 11/11/2019 food, housing, medical care, and heating? Food Insecurity Answer Date Recorded Within the past 12 months, you worried that your food would Never true 11/11/2019 run out before you got money to buy more. Within the past 12 months, the food you bought just didn't N ever true 11/11/2019 last and you didn't have money to get more. Transportation Needs Answer Date Recorded In the past 12 months, has lack of transportation kept you f rom No 11/11/2019 medical appointments or from getting medications? In the past 12 months, has lack of transportation kept you f rom No 11/11/2019 meetings, work, or getting things needed for daily living? Sex Assigned at Date Recorded Not on file COVID-19 Exposure Response Date Recorded In the last month, have you been in contact with No / Unsure 12/15/2019 5:30 PM CDT someone who was confirmed or suspected to have Coronavirus / COVID-19? documented as of this encounter Last Filed Vital Signs Not on filedocumented in this encounter Plan of Treatment Health Maintenance Due Date Last Done Comments HEPATITIS C (HCV) SCREEN 1945 DTaP,Tdap,and Td Vaccines (1 - Tdap) 1966 Breast Cancer Screening (MAMMOGRAM) 1987 COLON CANCER SCREENING ANNUAL FIT/FOBT 1997 COLON CANCER SCREENING FIT DNA EVERY 3 YEARS 1997 COLON CANCER SCREENING SIGMOIDOSCOPY EVERY 5 YEARS 1997 COLONOSCOPY 1997 Colorectal Cancer Screening 1997 Zoster Recombinant Vaccine (SHINGRIX) (1 of 2) 1997 Medicare Wellness Visit 02/23/2012 Osteoporosis Screening 02/23/2012 PNEUMOCOCCAL VACCINES 65+ (1 of 1 - PPSV23) 02/23/2012 INFLUENZA VACCINE (#1) 2019 Depression Screening 11/12/2020 11/13/2019 documented as of this encounter Procedures Procedure Name Priority Date/Time Associated Diagnosis Comme nts US ABDOMEN LIMITED Routine 12/15/2019 5:56 PM Diarrhea, Re sults for this CDT unspecified type procedure are in Nausea the results section. documented in this encounter Results US ABDOMEN LIMITED (12/15/2019 5:56 PM CDT) Specimen Impressions Performed At 1. Hepatic steatosis and hepatomegaly. PACS/VR/DOSE Preliminary Report Dictated by Resident: Vikram Meesk I, Stoney Bravo MD., have reviewed this study and agree with the above report. Narrative Performed At EXAM: US ABDOMEN LIMITED PACS/VR/DOSE HISTORY: 74 years-old Female with Diarrh ea, unspecified type,Nausea . TECHNIQUE: Limited abdominal ultrasound was performed focused on the liver, biliary system, and pancreas. Main christian l vein was evaluated with color Doppler imaging. Site Manager images w ere obtained for the record. COMPARISON: None FINDINGS: PANCREAS: Limited visualization due to s hadowing from bowel gas. AORTA: Upper abdominal aorta is normal in calib er. Diameter of the proximal abdominal aorta is 2.0 cm in AP dimensio n. LIVER: Length: 18.7 cm in craniocaudal dimensio n. Parenchyma: Diffuse increase hepatic ech ogenicity. No focal lesion is detected Portal vein: Hepatopetal flow present in the main portal vein MPV diameter: 1.0 cm in AP dimension. GALLBLADDER: No cholelithiasis Normal gallbladder wall thickness, 0.3 c m. No pericholecystic fluid or inflammatory changes. Negative Mcneil's sign. BILE DUCTS: No intra- or extrahepatic biliary dilata tion.. Common Duct diameter: 0.6 cm. IVC: IVC is normal in appearance where visual ized Procedure Note [facility], Radiant Results Inft User - 2019 6:17 PM CDT EXAM: US ABDOMEN LIMITED HISTORY: 74 years-old Female with Diarrh ea, unspecified type,Nausea . TECHNIQUE: Limited abdominal ultrasound was performed focused on the liver, biliary system, and pancreas. Main christian l vein was evaluated with color Doppler imaging. Site Manager images w ere obtained for the record. COMPARISON: None FINDINGS: PANCREAS: Limited visualization due to s hadowing from bowel gas. AORTA: Upper abdominal aorta is normal in calib er. Diameter of the proximal abdominal aorta is 2.0 cm in AP dimensio n. LIVER: Length: 18.7 cm in craniocaudal dimensio n. Parenchyma: Diffuse increase hepatic ech ogenicity. No focal lesion is detected Portal vein: Hepatopetal flow present in the main portal vein MPV diameter: 1.0 cm in AP dimension. GALLBLADDER: No cholelithiasis Normal gallbladder wall thickness, 0.3 c m. No pericholecystic fluid or inflammatory changes. Negative Mcneil's sign. BILE DUCTS: No intra- or extrahepatic biliary dilata tion.. Common Duct diameter: 0.6 cm. IVC: IVC is normal in appearance where visual ized IMPRESSION 1. Hepatic steatosis and hepatomegaly. Preliminary Report Dictated by Resident: Vikram Meeks I, Stoney Bravo MD., have reviewed th is study and agree with the above report. Performing Organization Address City/State/Zipcode Phone Number PACS/VR/DOSE documented in this encounter Visit Diagnoses Diagnosis Diarrhea, unspecified type Nausea Nausea alone documented in this encounter Insurance Payer Benefit Plan / Subscriber ID Effective Phone Address T ype Group Dates MEDICARE MEDICARE PART [id number] 2012-Pr [phone] [address] edicare A & B esent [phone] [place] [phone] [facility] [id number] 2017-Pre [address] [facility] sent [id number] Supplement MEDICARE [place] SUPPLEMENT [place] [id number] documented as of this encounter
--- OUTSIDE RECORDS SUMMARY | 2020-03-03 19:13 | XMS REPORT | Continuity of Care Document ---
:1945 Author Organization [facility] t Address [address] [place] [address] [place] [address] Care Team Providers Name Role Phone BRYNN Primary Care Physician Unavailable Zulma Mancera MD Attending Clinician Doctor Unassigned, Name Attending Clinician Unavailable Roz WILEY, A Attending Clinician Unavailable Temo HARDY Attending Clinician BRYNN Attending Clinician Unavailable Temo HARDY Admitting Clinician Payers Payer Name Policy Type Policy Number Effective Date Expiration Date Debora hendrix MEDICARE PART A [id number] 2012 AND B 00:00:00 Problems This patient has no known problems. Allergies, Adverse Reactions, Alerts This patient has no known allergies or adverse reactions. Medications This patient has no known medications. Procedures This patient has no known procedures. Encounters Start End Encounter Admission Attending Care Care Encounter Source Date/Time Date/Time Type Type Clinicians Facility Department ID 2019-12-15 2019-12-15 [facility] [id number] 17:30:00 23:59:00 Encounter Sera matthews [id number] [place] [id number] [place] [id number] 2019-12-15 2019-12-15 Orders Doctor ELISE [id number] 00:00:00 00:00:00 Only Unassigned, ARIN [id number] [place] [facility] [id number] [id number] 2019-11-17 2019-11-17 Transition RozLopez [facility] [id number] 00:00:00 00:00:00 of Care Torsten Acevedo [id number] [place] [id number] [id number] 2019-11-11 2019-11-15 [facility] [id number] 20:03:00 14:40:00 Encounter Kota Barragan [id number] [place] [id number] [place] [id number] 2019-08-24 2019-08-24 Outpatient BRITTANY SWAIN [facility] [id number] 14:50:31 14:50:31 KAREN hernandez n Results Test Description Test Time Test Comments Results Result [facility] Comments - US HEAD AND NECK 2020-01-14 Name: 15:41:00 ELIECERLINSEY [facility] : 1945 Age/S: 74 / F [id number] [place] Unit #: [id number] Loc: [place] [address] Phys: Olivier Peterson III, MD Acct: [id number] Dis Date: Status: REG CLI PHONE #: [phone] Exam Date: 01/14/2020 1421 FAX #: Reason: THYROID NODULE EXAMS: CPT: [id number] US HEAD AND NECK [id number] THYROID ULTRASOUND LOCATION: R16 CLINICAL HISTORY: Thyroid nodule. COMPARISON: No previous exam available. TECHNIQUE: Multiple high resolution images were obtained through the thyroid gland using a multifrequency linear transducer. FINDINGS: The thyroid gland is normal in size, shape, and echogenicity. The thyroid isthmus measures 2 mm. The right thyroid lobe measures 4.0 x 1.3 x 1.9 cm. Small well marginated anechoic nodules are present, 1.0 cm in the superior lateral aspect, 0.6 cm in the mid aspect, and 0.4 cm in the lower aspect. These nodules likely reflect colloid cysts. The left thyroid lobe measures 3.1 x 1.1 x 1.3 cm. Small hypoechoic nodules are also seen, 2 mm and 6 mm, likely colloid cysts and/or follicular adenomas. IMPRESSION: Small hypoechoic nodules likely reflect follicular adenomas and/or colloid cysts. at 1541 Reported and signed by: Dariana Randall M.D. CC: Olivier Peterson III, MD Technologist: Shona Engel Trnilb Date/Time: 01/14/2020 (8551) tMACKENZIE PAGE 1 Signed Report Name: LINSEY GONZÁLES : 1945 Age/S: 74 / F [id number] Unit #: [id number] Loc: [place] [address] Phys: Olivier Peterson III, MD Acct: [id number] Dis Date: Status: REG CLI PHONE #: [phone] Exam Date: 01/14/2020 1421 FAX #: Reason: THYROID NODULE EXAMS: CPT: [id number] US HEAD AND NECK 56054 <Continued> Orig Print D/T: S: 01/14/2020 (3109) Probe: PAGE 2 Signed Report
--- OUTSIDE RECORDS SUMMARY | 2020-03-03 19:13 | XMS REPORT | Summary of Care ---
:1945 Author Organization [facility] Address [address] [place] [address] Care Team Providers Name Role Phone Will Barcenas Primary Care Provider Zbigniew Miranda DO Machine Design Checker Encounter Details Date Type Department Care Team Description 12/15/2019 Orders Only [facility] Doctor Unassigned, No [address] [facility] var Name [place] [id number] [address] [place] [id number] Allergies Active Allergy Reactions Severity Noted Date Comments Baclofen Unknown - See comments 11/11/2019 documented as of this encounter (statuses as of 12/15/2019) Medications Medication Sig Dispensed Refills Start Date [...] as of this encounter (statuses as of 12/15/2019) Active Problems Problem Noted Date Colitis 11/11/2019 Essential hypertension 11/11/2019 Gastroesophageal reflux disease without esophagitis Chronic back pain 11/11/2019 documented as of this encounter (statuses as of 12/15/2019) Social History Tobacco Use Types Packs/Day Years [...] Assigned at Date Recorded Not on file documented as of this encounter Last Filed Vital Signs Not on filedocumented in this encounter Plan of Treatment Date Type Specialty Care Team Description 12/15/2019 Appointment Radiology Suzy Mancera MD [address] [place] [address] [phone] Health Maintenance Due Date Last Done Comments [...] Name Priority Date/Time Associated Diagnosis Comme nts ASSIGNMENT OF BENEFITS Routine 12/15/2019 5:27 PM CDT documented in this encounter Results Not on filedocumented in this encounter Insurance Payer Benefit Plan / Subscriber ID Effective Phone Address T ype Group Dates MEDICARE MEDICARE PART [id number] 2012-Pr [phone] [address] [facility] [employer] [facility] [phone] [place] [address] [facility] [id number] 2017-Pre [address] [facility] sent [id number] Supplement MEDICARE [place] SUPPLEMENT [place] [id number] documented as of this encounter
[2020-03-03 19:28] LABS: Urine Blood TRACE (NEG); Urine Glucose NEGATIVE (NEG); Urine Protein NEGATIVE (NEG); Urine pH 8.5 (5.0-7.0)
[2020-03-03 20:00] LABS: Basophils % 0.2 % (0-1.3); Hematocrit 36.7 % (36.0-45.0); Lymphocytes % 11.7 % (15.3-44.8); MPV 7.5 fL (7.6-11.3); RBC Red Blood Cell Count 4.57 M/uL (3.86-4.86)
[2020-03-03] MEDS ORDERED: METOCLOPRAMIDE 10 MG/2mL INJ ONE (20:11)
[2020-03-03 20:21] LABS: Albumin 4.1 g/dL (3.4-5.0); Bilirubin Direct 0.2 mg/dL (0-0.2); Bilirubin Total 0.9 mg/dL (0.2-1.0); Potassium 3.1 mmol/L (3.5-5.1); Protein, Total 7.8 g/dL (6.4-8.2)
--- NOTE | 2020-03-03 20:50 | RAD REPORT ---
EXAM DESCRIPTION: CT - Abdomen Pelvis W Contrast - 03/03/2020 8:21 pm CLINICAL HISTORY: Abdominal pain COMPARISON: 2018. TECHNIQUE: Computed axial tomography of the abdomen pelvis was obtained. 100 cc Isovue-300 was admin istered intravenously. Oral contrast was not requested which limits evaluation of bowel. All CT scans are performed using dose optimization technique as appropriate and may include automated exposure control or mA/KV adjustment according to patient size. FINDINGS: A 7 centimeter soft tissue structure abuts the medial aspect of the spleen. It is unchange d in size or appearance comparison 2018. A 15 millimeter additional soft tissue structure medial to t he spleen has density similar to the spleen and is compatible with an accessory spleen Otherwise, the liver, spleen, pancreas, adrenals and kidneys appear unremarkable There is no evidence of diverticulitis. A hysterectomy has been performed. IMPRESSION: 7 centimeter soft tissue structure which abuts the medial aspect of the spleen is unchan ged in size and appearance from 2018. It likely is benign. No acute abnormality is displayed
[2020-03-03] MEDS ORDERED: MORPHINE 4 MG/ML SYR ONE ×2 (21:00→22:47)
[2020-03-03] MEDS ORDERED: ONDANSETRON 4 MG/2 ML VIAL ONE (21:18)
[2020-03-03] MEDS ORDERED: FAMOTIDINE 20 MG/2 ML VIAL IV ONE (22:55)
[2020-03-03] MEDS ORDERED: MAGNES/ALUMIN/SIMET 30ML UCUP ONE (23:18)
--- NOTE | 2020-03-04 00:23 | ER ---
Nurse's Notes [facility] Name: Sandy East Age: 75 yrs Sex: Female : 1945 Arrival Date: 03/03/2020 Time: 19:15 Bed 17 Private MD: Diagnosis: Unspecified abdominal pain;Vomiting Presentation: 03/03 19:15 Chief complaint: EMS states: "the pt is reporting abdominal pain with nausea and jd3 vomiting X 1 hour now.". Coronavirus screen: At this time, the client does not indicate any symptoms associated with coronavirus-19. Ebola Screen: Patient negative for fever greater than or equal to 101.5 degrees Fahrenheit, and additional compatible Ebola Virus Disease symptoms. Initial Sepsis Screen: Does the patient meet any 2 criteria? No. Patient's initial sepsis screen is negative. Does the patient have a suspected source of infection? No. Patient's initial sepsis screen is negative. Risk Assessment: Do you want to hurt yourself or someone else? Patient reports no desire to harm self or others. Onset of symptoms was March 03, 2020. 19:15 Method Of Arrival: EMS: [facility] jd3 19:15 Acuity: ALEXANDRA 3 jd3 Historical: - Allergies: 19:21 PENICILLINS; jd3 19:21 Phenergan; jd3 19:21 Baclofen; jd3 - Home Meds: 19:30 carvedilol 6.25 mg oral tab 1 tab 2 times per day [Active]; fluoxetine 20 mg oral tab fc once daily [Active]; temazepam 15 mg oral cap 1 cap nightly [Active]; pantoprazole 40 mg oral TbEC 1 tab 2 times per day [Active]; [place] 7.5-325 mg Oral tab 1 tab twice a day [Active]; tizanidine 2 mg oral tab nightly [Active]; atorvastatin 40 mg oral tab 1 tab nightly [Active]; Zofran (as hydrochloride) 4 mg Oral tab every 6 hours [Active]; glycopyrrolate 2 mg oral tab tid prn [Active]; amlodipine 5 mg tab 1 tab nightly [Active]; sucralfate 1 gram Oral tab 1 tab 4 times per day [Active]; fentanyl 75 mcg/hr Topical pt72 1 patch every 48 hours [Active]; - PMHx: 19:21 brain tumer; Fibromyalgia; jd3 19:51 Hypertension; Depression; High Cholesterol; Chronic pain; fc - PSHx: 19:21 back surgery; Cholecystectomy; Hysterectomy; Carpal Tunnel Repair; brain tumer jd3 removeal; neck surgery; Stas foot surgery; - Immunization history:: Adult Immunizations up to date. - Social history:: Smoking status: Patient denies any tobacco usage or history of. Screenin:30 Abuse screen: Denies threats or abuse. Denies injuries from another. Nutritional rr5 screening: No deficits noted. Tuberculosis screening: No symptoms or risk factors identified. Fall Risk IV access (20 points). Ambulatory Aid- Crutches/Cane/Walker (15 pts). Gait- Weak (10 pts.). Total Man Fall Scale indicates High Risk Score (45 or more points). Fall prevention measures have been instituted. Side Rails Up X 2 Placed Close to Nursing Station Frequent Obs/Assessments Occuring As available patient and family educated on Fall Prevention Program and Strategies. Assessment: 19:30 General: Appears in no apparent distress. uncomfortable, Behavior is calm, cooperative, rr5 appropriate for age. Pain: Denies pain. Neuro: Level of Consciousness is awake, alert, obeys commands, Oriented to person, place, time, situation. Cardiovascular: Capillary refill < 3 seconds Patient's skin is warm and dry. Respiratory: Airway is patent Respiratory effort is even, unlabored, Respiratory pattern is regular, symmetrical. GI: Abdomen is flat, Reports nausea, vomiting. : No signs and/or symptoms were reported regarding the genitourinary system. EENT: No signs and/or symptoms were reported regarding the EENT system. Derm: Skin is intact, is healthy with good turgor, Skin temperature is warm. Musculoskeletal: Circulation, motion, and sensation intact. Capillary refill < 3 seconds. 21:10 GI: Pt is actively vomiting undigested food, Ed provider aware with order made and rr5 carried out. 22:45 Reassessment: Patient appears in no apparent distress at this time. Patient is alert, rr5 oriented x 3, equal unlabored respirations, skin warm/dry/pink. for repeat troponin at 0000H explained to patient and she agreed for the plan of care. GI: Reports upper abdominal pain, nausea, Pain is 8 out of 10 on a pain scale. ED provider with order made and carried out. 23:20 Reassessment: Patient appears in no apparent distress at this time. Patient and/or rr5 family updated on plan of care and expected duration. Pain level reassessed. 03/04 00:00 Reassessment: Patient appears in no apparent distress at this time. Patient is alert, rr5 oriented x 3, equal unlabored respirations, skin warm/dry/pink. awaiting for troponin result. 00:50 Reassessment: review done, ED provider reassess the patient with order made for rr5 discharge after IV infusion. 02:10 Reassessment: Patient appears in no apparent distress at this time. Patient is alert, rr5 oriented x 3, equal unlabored respirations, skin warm/dry/pink. discharge instruction given and explained without complaints made. Patient states symptoms have improved. Vital Signs: 03/03 19:22 Weight 63.5 kg (R); Height 5 ft. 5 in. (165.10 cm) (R); Pain 9/10; jd3 19:22 BP 176 / 65; Pulse 84; Resp 19; Temp 99.3; Pulse Ox 99% ; rr5 19:25 BP 187 / 80; Pulse 79; Resp 18; Temp 98.7(O); Pulse Ox 100% on R/A; fc 21:22 BP 169 / 95; Pulse 91; Resp 17; Pulse Ox 100% ; rr5 22:40 BP 183 / 93; Pulse 90; Resp 17; Pulse Ox 99% ; Pain 8/10; rr5 03/04 00:00 BP 165 / 92; Pulse 99; Resp 17; Pulse Ox 98% ; rr5 01:00 BP 174 / 95; Pulse 90; Resp 17; Pulse Ox 98% ; rr5 02:00 BP 159 / 85; Pulse 95; Resp 16; Temp 98.4; Pulse Ox 99% ; rr5 03/03 19:22 Body Mass Index 23.30 (63.50 kg, 165.10 cm) jd3 ED Course: 03/03 19:15 Patient arrived in ED. jd3 19:16 Triage completed. jd3 19:21 Arm band placed on. jd3 19:30 Patient has correct armband on for positive identification. Placed in gown. Bed in low rr5 position. Call light in reach. Side rails up X2. 19:30 humidifier attendant on. Pulse ox on. NIBP on. rr5 19:30 No provider procedures requiring assistance completed. Maintain EMS IV. Dressing rr5 intact. Good blood return noted. Site clean \\T\\ dry. Gauge \\T\\ site: G20 right AC. 19:31 Caesar Coleman NP is PHCP. pm1 19:31 Kelechi Varghese MD is Attending Physician. pm1 19:32 Gil Estes RN is Primary Nurse. rr5 19:50 EKG done, by ED staff, reviewed by Caesar Coleman NP. rr5 20:21 CT Abd/Pelvis - IV Contrast Only In Process Unspecified. EDMS 03/04 02:25 IV discontinued, intact, bleeding controlled, No redness/swelling at site. Pressure rr5 dressing applied. Administered Medications: 03/03 20:08 Drug: Reglan 10 mg Route: IVP; Site: right antecubital; rr5 21:00 Follow up: Response: No adverse reaction; Nausea unchanged rr5 21:28 Follow up: Response: No adverse reaction; No change in condition rr5 20:49 Drug: morphine 4 mg {Note: rass 0.} Route: IVP; Site: right antecubital; rr5 21:50 Follow up: Response: No adverse reaction; Pain is decreased; RASS: Alert and Calm (0) rr5 21:10 Drug: Zofran (Ondansetron) 4 mg Route: IVP; Site: right antecubital; rr5 22:00 Follow up: Response: No adverse reaction; Nausea unchanged rr5 22:45 Drug: Pepcid 20 mg Route: IVP; Site: right antecubital; rr5 03/04 00:10 Follow up: Response: No adverse reaction rr5 03/03 23:08 Drug: GI Cocktail without - (Maalox Suspension 30 ml, Lidocaine Liquid 2 % 15 rr5 ml) Route: PO; 03/04 00:10 Follow up: Response: No adverse reaction rr5 01:00 Drug: Potassium Chloride 40 mEq Route: PO; rr5 02:00 Follow up: Response: No adverse reaction rr5 01:02 Drug: NS 0.9% 1000 ml Route: IV; Rate: 1000 ml; Site: right antecubital; rr5 02:15 Follow up: Response: No adverse reaction; IV Status: Completed infusion; IV Intake: rr5 1000ml Intake: 02:15 IV: 1000ml; Total: 1000ml. rr5 Outcome: 00:22 Discharge ordered by . pm1 02:25 Discharged to home via wheelchair, with family. rr5 02:25 Condition: stable 02:25 Discharge instructions given to patient, Instructed on discharge instructions, follow up and referral plans. medication usage, Demonstrated understanding of instructions, follow-up care, medications, Prescriptions given X 2. 02:28 Patient left the ED. rr5 Signatures: Dispatcher [employer] EDMS Svetlana Chacko RN RN Caesar Coleman NP ELECTRICIAN SUBSTATION SUPERVISOR pm1 Harjit Cortes RN RN j Gil Estes RN RN rr5 Corrections: (The following items were deleted from the chart) 03/03 19:30 19:21 Home Meds: carvedilol oral oral; [facility] 19:30 19:21 Home Meds: cholecalciferol (vitamin D3) oral oral; [facility] 19:30 19:21 Home Meds: fentanyl; [facility] 19:30 19:21 Home Meds: Fluoxetine Oral; [facility] 19:30 19:21 Home Meds: hydrocodone; [facility] 19:30 19:21 Home Meds: Temazepam Oral; [facility] 19:30 19:21 Home Meds: pantoprazole oral oral; [facility]
--- NOTE | 2020-03-04 00:23 | EDPHYS ---
Physician Documentation [facility] Name: Sandy East Age: 75 yrs Sex: Female : 1945 Arrival Date: 03/03/2020 Time: 19:15 Bed 17 Private MD: ED Physician Kelechi Varghese HPI: 03/03 19:42 This 75 yrs old Female presents to ER via EMS with complaints of pm1 Nausea/Vomiting. 19:42 The patient presents to the emergency department with nausea, vomiting, abdominal pain, pm1 of the epigastric area. Onset: The symptoms/episode began/occurred at 04:00. Possible causes: bad food exposure, turkey. Onset of abdominal pain with nausea and vomiting one hour after eating turkey. The symptoms are alleviated by nothing. Associated signs and symptoms: Pertinent negatives: constipation, diarrhea, dysuria, fever, fever. Severity of symptoms: in the emergency department the symptoms are unchanged. The patient has not experienced similar symptoms in the past. Historical: - Allergies: 19:21 PENICILLINS; jd3 19:21 Phenergan; jd3 19:21 Baclofen; jd3 - Home Meds: 19:30 carvedilol 6.25 mg oral tab 1 tab 2 times per day [Active]; fluoxetine 20 mg oral tab fc once daily [Active]; temazepam 15 mg oral cap 1 cap nightly [Active]; pantoprazole 40 mg oral TbEC 1 tab 2 times per day [Active]; [place] 7.5-325 mg Oral tab 1 tab twice a day [Active]; tizanidine 2 mg oral tab nightly [Active]; atorvastatin 40 mg oral tab 1 tab nightly [Active]; Zofran (as hydrochloride) 4 mg Oral tab every 6 hours [Active]; glycopyrrolate 2 mg oral tab tid prn [Active]; amlodipine 5 mg tab 1 tab nightly [Active]; sucralfate 1 gram Oral tab 1 tab 4 times per day [Active]; fentanyl 75 mcg/hr Topical pt72 1 patch every 48 hours [Active]; - PMHx: 19:21 brain tumer; Fibromyalgia; jd3 19:51 Hypertension; Depression; High Cholesterol; Chronic pain; fc - PSHx: 19:21 back surgery; Cholecystectomy; Hysterectomy; Carpal Tunnel Repair; brain tumer jd3 removeal; neck surgery; Stas foot surgery; - Immunization history:: Adult Immunizations up to date. - Social history:: Smoking status: Patient denies any tobacco usage or history of. ROS: 19:42 Constitutional: Negative for fever, chills, and weight loss, Cardiovascular: Negative pm1 for chest pain, palpitations, and edema, Respiratory: Negative for shortness of breath, cough, wheezing, and pleuritic chest pain. 19:42 Back: Negative for injury and pain, MS/Extremity: Negative for injury and deformity, Skin: Negative for injury, rash, and discoloration. 19:42 Neuro: Negative for headache, weakness, numbness, tingling, and seizure. 19:42 Abdomen/GI: Positive for abdominal pain, nausea and vomiting, Negative for diarrhea, constipation, shortness of breath. Exam: 19:42 Constitutional: This is a well developed, well nourished patient who is awake, alert, pm1 and in no acute distress. Head/Face: Normocephalic, atraumatic. Chest/axilla: Normal chest wall appearance and motion. Nontender with no deformity. No lesions are appreciated. 19:42 Back: No spinal tenderness. No costovertebral tenderness. Full range of motion. Skin: Warm, dry with normal turgor. Normal color with no rashes, no lesions, and no evidence of cellulitis. MS/ Extremity: Pulses equal, no cyanosis. Neurovascular intact. Full, normal range of motion. 19:42 Cardiovascular: Exam negative for acute changes, Rate: normal, Rhythm: regular, Pulses: no pulse deficits are appreciated, Edema: is not appreciated. 19:42 Respiratory: Exam negative for acute changes, respiratory distress, shortness of breath. 19:42 Abdomen/GI: Inspection: abdomen appears normal, Palpation: soft, in all quadrants, mild abdominal tenderness, in the epigastric area. 19:42 Neuro: Exam negative for acute changes, Orientation: is normal, Mentation: is normal, Motor: is normal, moves all fours. Vital Signs: 19:22 Weight 63.5 kg (R); Height 5 ft. 5 in. (165.10 cm) (R); Pain 9/10; jd3 19:22 BP 176 / 65; Pulse 84; Resp 19; Temp 99.3; Pulse Ox 99% ; rr5 19:25 BP 187 / 80; Pulse 79; Resp 18; Temp 98.7(O); Pulse Ox 100% on R/A; fc 21:22 BP 169 / 95; Pulse 91; Resp 17; Pulse Ox 100% ; rr5 22:40 BP 183 / 93; Pulse 90; Resp 17; Pulse Ox 99% ; Pain 8/10; rr5 03/04 00:00 BP 165 / 92; Pulse 99; Resp 17; Pulse Ox 98% ; rr5 01:00 BP 174 / 95; Pulse 90; Resp 17; Pulse Ox 98% ; rr5 02:00 BP 159 / 85; Pulse 95; Resp 16; Temp 98.4; Pulse Ox 99% ; rr5 03/03 19:22 Body Mass Index 23.30 (63.50 kg, 165.10 cm) jd3 MDM: 03/03 19:42 Patient medically screened. pm1 03/04 00:21 Data reviewed: vital signs. Data interpreted: Pulse oximetry: on room air is 99 %. pm1 Interpretation: normal. Counseling: I had a detailed discussion with the patient and/or guardian regarding: the historical points, exam findings, and any diagnostic results supporting the discharge/admit diagnosis, lab results, radiology results, the need for outpatient follow up, to return to the emergency department if symptoms worsen or persist or if there are any questions or concerns that arise at home. 03/03 19:25 Order name: Urine Dipstick--Ancillary (enter results) 2 03/03 19:26 Order name: Urine Dipstick-Ancillary; Complete Time: 19:32 EDMS 03/03 19:36 Order name: Basic Metabolic Panel; Complete Time: 20:37 pm1 03/03 19:36 Order name: CBC with Diff; Complete Time: 20:37 pm1 03/03 19:36 Order name: Hepatic Function; Complete Time: 20:37 pm1 03/03 19:36 Order name: Lipase; Complete Time: 20:37 pm1 03/03 19:36 Order name: CT Abd/Pelvis - IV Contrast Only; Complete Time: 20:56 pm1 03/03 20:37 Order name: Troponin (emerg Dept Use Only); Complete Time: 21:35 pm1 03/03 23:34 Order name: Troponin (emerg Dept Use Only); Complete Time: 00:21 rr5 03/04 00:17 Order name: CREATININE WHOLE BLOOD; Complete Time: 00:21 EDMS 03/03 19:26 Order name: Urine Dipstick-Ancillary (obtain specimen); Complete Time: 19:26 mw2 03/03 19:34 Order name: EKG - Nurse/Tech; Complete Time: 19:34 rr5 03/03 19:36 Order name: IV Saline Lock; Complete Time: 19:54 pm1 03/03 19:36 Order name: Labs collected and sent; Complete Time: 19:54 pm1 Administered Medications: 03/03 20:08 Drug: Reglan 10 mg Route: IVP; Site: right antecubital; rr5 21:00 Follow up: Response: No adverse reaction; Nausea unchanged rr5 21:28 Follow up: Response: No adverse reaction; No change in condition rr5 20:49 Drug: morphine 4 mg {Note: rass 0.} Route: IVP; Site: right antecubital; rr5 21:50 Follow up: Response: No adverse reaction; Pain is decreased; RASS: Alert and Calm (0) rr5 21:10 Drug: Zofran (Ondansetron) 4 mg Route: IVP; Site: right antecubital; rr5 22:00 Follow up: Response: No adverse reaction; Nausea unchanged rr5 22:45 Drug: Pepcid 20 mg Route: IVP; Site: right antecubital; rr5 03/04 00:10 Follow up: Response: No adverse reaction rr5 03/03 23:08 Drug: GI Cocktail without - (Maalox Suspension 30 ml, Lidocaine Liquid 2 % 15 rr5 ml) Route: PO; 03/04 00:10 Follow up: Response: No adverse reaction rr5 01:00 Drug: Potassium Chloride 40 mEq Route: PO; rr5 02:00 Follow up: Response: No adverse reaction rr5 01:02 Drug: NS 0.9% 1000 ml Route: IV; Rate: 1000 ml; Site: right antecubital; rr5 02:15 Follow up: Response: No adverse reaction; IV Status: Completed infusion; IV Intake: rr5 1000ml Disposition: 04:42 Co-signature as Attending Physician, Kelechi Varghese MD. [email or web address] Disposition: 03/04/20 00:22 Discharged to Home. Impression: Unspecified abdominal pain, Vomiting. - Condition is Stable. - Discharge Instructions: Abdominal Pain, Adult, Nausea and Vomiting, Adult. - Prescriptions for Zofran ODT 4 mg Oral tablet,disintegrating - place 1 tablet by TRANSLINGUAL route every 8 hours As needed; 20 tablet. Bentyl 20 mg Oral Tablet - take 1 tablet by ORAL route every 6 hours As needed; 20 tablet. - Medication Reconciliation Form, Thank You Letter, Antibiotic Education, Prescription Opioid Use form. - Follow up: Emergency Department; When: As needed; Reason: Worsening of condition. Follow up: Private Physician; When: 2 - 3 days; Reason: Recheck today's complaints, Continuance of care, Re-evaluation by your physician. - Problem is new. - Symptoms have improved. Signatures: Dispatcher [employer] EDMS Svetlana Chacko RN RN Caesar Coleman NP [employer]AB[employer]IC[employer] pm1 Hrajit Cortes RN RN jd3 Sandy Santoyo mw2 Gil Estes RN RN rr5 Kelechi Varghese MD MD 7 Corrections: (The following items were deleted from the chart) 03/03 19:30 19:21 Home Meds: carvedilol oral oral; [facility] 19:30 19:21 Home Meds: cholecalciferol (vitamin D3) oral oral; [facility] :30 19:21 Home Meds: fentanyl; [facility] :30 19:21 Home Meds: Fluoxetine Oral; [facility] :30 19:21 Home Meds: hydrocodone; [facility] :30 19:21 Home Meds: Temazepam Oral; [facility] :30 19:21 Home Meds: pantoprazole oral oral; [facility] 03/04 02:28 00:22 03/04/2020 00:22 Discharged to Home. Impression: Unspecified abdominal pain; rr5 Vomiting. Condition is Stable. Forms are Medication Reconciliation Form, Thank You Letter, Antibiotic Education, Prescription Opioid Use. Follow up: Emergency Department; When: As needed; Reason: Worsening of condition. Follow up: Private Physician; When: 2 - 3 days; Reason: Recheck today's complaints, Continuance of care, Re-evaluation by your physician. Problem is new. Symptoms have improved. pm1
[2020-03-04] MEDS ORDERED: POTASSIUM CL SA 10 MEQ TAB PO ONE (01:15)
[2020-03-04] MEDS ORDERED: NA CHLORIDE 0.9% 1,000 ML ONE (01:15)
[2020-03-04 06:36] VITALS: BP 183/93; O2SAT 99
[2020-03-04 06:43] VITALS: TEMP 98.2
== END 2020-03-04 02:28 | disposition home or self-care (01) ==
LOC: ER 19:11
DX: R10.9 Unspecified abdominal pain (principal); I10 Essential (primary) hypertension; F32.9 Major depressive disorder, single episode, unspecified; E78.00 Pure hypercholesterolemia, unspecified; G89.29 Other chronic pain; Z88.0 Allergy status to penicillin; Z88.1 Allergy status to other antibiotic agents; Z88.8 Allergy status to other drugs, medicaments and biological substances
CPT/HCPCS: 96361; 93005; 85025; 80048; 36415; 82565; 80076; 81003; 84484 ×2; 83690; 74177; 96375; 96374; 99284; Q9967; J2765; J7030; J2405